=== PATIENT | male | born 1950 | race Caucasian/White ===

== ENCOUNTER 2017-12-27 14:06 | Observation (INO) ==
--- NOTE | 2017-12-27 14:25 | Emergency Department Note ---
Disposition Male Urogenital HPI - General Chief complaint: ED Urogenital-Male Stated complaint: trouble with catheter Time Seen by Provider: 12/27/17 14:24 Nursing Notes Reviewed: Yes Vital Signs Reviewed: Yes - Related Data Allergies Allergy/AdvReac Type Severity Reaction Status Date / Time nitrofurantoin Allergy See Verified 12/27/17 14:14 [From Macrobid] Comments Penicillins Allergy Anaphylaxis Verified 12/27/17 14:14 Course Vital Signs Temperature 97.7 F 12/27/17 14:12 Pulse Rate 90 12/27/17 14:12 Respiratory Rate 18 12/27/17 14:12 Blood Pressure 143/79 12/27/17 14:12 O2 Sat by Pulse Oximetry 96 12/27/17 14:12 Temperature 97.7 F 12/27/17 14:12 Pulse Rate 90 12/27/17 14:12 Respiratory Rate 18 12/27/17 14:12 Blood Pressure 143/79 12/27/17 14:12 O2 Sat by Pulse Oximetry 96 12/27/17 14:12 Oxygen Delivery Oxygen Delivery Room Air
[2017-12-27] MEDS ORDERED: Furosemide 40 MG/4 ML VIAL IVP ONE (14:39)
--- NOTE | 2017-12-27 14:44 | Emergency Department Note ---
Disposition Clinical Impression: Machuca catheter in place prior to arrival Acute exacerbation of CHF (congestive heart failure) Qualifiers: Heart failure type: unspecified Qualified Code(s): I50.9 - Heart failure, unspecified UTI (urinary tract infection) Qualifiers: Urinary tract infection type: site unspecified Hematuria presence: with hematuria Qualified Code(s): N39.0 - Urinary tract infection, site not specified ; R31.9 - Hematuria, unspecified Disposition: Admitted As Inpatient Condition: Fair Referrals: Madeline Michaels MD [Primary Care Provider] - Forms: ED Satisfaction Letter Time of Disposition: 16:19 General Adult HPI - General Chief complaint: ED Urogenital-Male Stated complaint: trouble with catheter Time Seen by Provider: 12/27/17 14:24 Nursing Notes Reviewed: Yes Vital Signs Reviewed: Yes - History of Present Illness HPI Narrative: 67-year-old male presents from home for evaluation of multiple complaints: 1) patient is a history of CAD status post DC with no stent. History CHF. Currently on Lasix 80 mg daily divided twice a day. He has had progressive shortness of breath, orthopnea, progressive swelling for the past several days. He also has scrotal swelling. 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 Expresses frustration with his primary care physician and last saw his hot blast worker in August. 2) patient was seen at [facility] emergency department 2 days ago for urinary retention. He was given a indwelling Machuca with leg bag with follow-up to urology. His Machuca is draining and, in the last 24 hours, he is emptied quantity 8 of the leg bags. The urologist with whom he was recommended no longer works with [facility]. The patient and refused to see the only other urologists at [facility]. Currently, he has no urology follow-up. 3) right lower back pain. Onset several days ago. Described as intermittent dullness. PMH: Hypertension, hyperlipidemia, CAD with ACS with no stent, CHF, BPH. History of pulmonary fibrosis and COPD; 2 L nasal cannula continuously. ROS: Positive: As above Negative: Fever, chills, nausea, vomiting, chest pains, palpitations, diaphoresis, changes in bowel habits, abdominal pain Pain Scale: 10 - Related Data Home Medications Medication Instructions Recorded Confirmed Albuterol Sulfate [Proair Hfa] 2 puff IH QID PRN 12/27/17 12/27/17 Docusate Sodium [Dok] 100 mg PO HS 12/27/17 12/27/17 Dorzolamide HCl/Pf [Dorzolamide 2% 1 drop OP BID 12/27/17 12/27/17 Eye Drop] Dulaglutide [Trulicity] 1.5 mg SQ QWEEK 12/27/17 12/27/17 Esomeprazole Magnesium [Nexium] 40 mg PO DAILY 12/27/17 12/27/17 Fenofibrate Nanocrystallized 145 mg PO DAILY 12/27/17 12/27/17 [Fenofibrate] Finasteride [Proscar] 5 mg PO DAILY 12/27/17 12/27/17 Furosemide [Lasix] 40 mg PO BID 12/27/17 12/27/17 Gabapentin [Neurontin] 300 mg PO 0800,1200 12/27/17 12/27/17 Gabapentin [Neurontin] 600 mg PO HS 12/27/17 12/27/17 Insulin DETEMIR [Levemir Flextouch] 40 unit SQ QAM 12/27/17 12/27/17 Insulin DETEMIR [Levemir Flextouch] 80 unit SQ QPM 12/27/17 12/27/17 Losartan [Cozaar] 25 mg PO DAILY 12/27/17 12/27/17 Phenazopyridine [Pyridium] 200 mg PO TID 12/27/17 12/27/17 Polyethylene Glycol 3350 [MiraLAX 1 scoop PO DAILY 12/27/17 12/27/17 Powder Bulk 17.9 Oz] Potassium Chloride [Klor-Con 10] 10 meq PO DAILY 12/27/17 12/27/17 Rosuvastatin Calcium [Crestor] 10 mg PO QPM 12/27/17 12/27/17 Sertraline [Zoloft] 100 mg PO DAILY 12/27/17 12/27/17 Tamsulosin HCl [Flomax] 0.4 mg PO DAILY 12/27/17 12/27/17 Tizanidine HCl 2 - 4 mg PO TID PRN 12/27/17 12/27/17 Travoprost [Travatan Z] 1 drop OP HS 12/27/17 12/27/17 metFORMIN [Glucophage] 850 mg PO BID 12/27/17 12/27/17 rOPINIRole [Requip] 1 mg PO HS 12/27/17 12/27/17 Allergies Allergy/AdvReac Type Severity Reaction Status Date / Time nitrofurantoin Allergy See Verified 12/27/17 14:14 [From Macrobid] Comments Penicillins Allergy Anaphylaxis Verified 12/27/17 14:14 All systems ED: reviewed and negative except as stated. Review of Systems: As Per HPI Physical Exam Vital Signs Reviewed General: Patient is alert, oriented, and in no acute distress. Head: atraumatic, normocephalic Eye: normal appearance, PERRL, EOMI, no scleral icterus, no conjunctival injection ENT: mucous membranes moist, normal external ear exam Neck: normal inspection, trachea midline, full ROM Chest: normal inspection, symmetric chest rise Respiratory: Poor respiratory effort. Bilateral breath sounds are diminished with no crackles or wheezes. Cardiovascular: Regular rate and rhythm. No clicks, rubs, gallops, or murmors. Normal heart sounds. 2+ pitting edema from the patient's ankles through to his lower abdomen including scrotal edema. Abdomen: Bowel sounds present normoactive x-4 quadrants. Abdomen is soft, nondistended, and nontender. No guarding or rebound. No organomegaly noted. Musculoskeletal: Spontaneously moving all extremities. Skin: warm, dry, intact. Neuro: Alert and oriented x4. Sensation light touch intact. Psych: Patient's affect is appropriate for situation. Course Course Narrative: Clinical concern is for acute exacerbation of congestive heart failure given the patient's profound pitting edema. Concerned that he may have a UTI from the Machuca catheter causing his back pain. We will replace the Machuca, dropping urinalysis, assess for exacerbation of CHF. We will begin with 40 mg IV Lasix at this time. Patient currently saturating well with no notable increased work of breathing on his baseline 2 L oxygen. Chest x-ray shows coarse markings throughout concerning for edema versus fibrosis. Low suspicion for infections process at this time. Patient does have a history of palmar fibrosis however, he also has clinical evidence of volume overload. Serum hematology shows hemoglobin of 10; no prior values for comparison. Serum chemistry shows elevated BNP consistent with congestive heart failure. Creatinine is elevated to 1.7; no prior values for comparison to know if this is acute kidney injury, consistent with his chronic kidney disease, or acute on chronic kidney injury. Urinalysis is concerning for urinary tract infection. Will provide Rocephin. No cardiac history on record. I discussed the above with the patient and his at bedside. I offered them transfer [facility] where the bulk of his medical care has been performed. They prefer admission to this facility. I discussed the above with the admitting hospitalist. He agrees to accept the patient for acute exacerbation of congestive heart failure as well as urinary tract infection. We discussed the need for eventual urology consult given his arrival with a Machuca catheter for reported urinary retention. Chest X-Ray 12/27/17 14:39 IMPRESSION: Decreased right lung volume. Coarse interstitial markings throughout the right lung and to a lesser degree in the left lung base. While findings may be related to edema or infection, concern for fibrosis given decreased lung volume on the right. D/ / Perla Hansen MD / Perla Hansen MD Interpreting Provider: Perla Hansen MD Vital Signs Temperature 97.7 F 12/27/17 14:12 Pulse Rate 90 12/27/17 14:12 Respiratory Rate 18 12/27/17 14:12 Blood Pressure 143/79 12/27/17 14:12 O2 Sat by Pulse Oximetry 96 12/27/17 14:12 Temperature 97.7 F 12/27/17 14:12 Pulse Rate 90 12/27/17 14:12 Respiratory Rate 18 12/27/17 14:12 Blood Pressure 143/79 12/27/17 14:12 O2 Sat by Pulse Oximetry 96 12/27/17 14:12 Oxygen Delivery Oxygen Delivery Room Air Medical Decision Making - Lab Data Result diagrams: 12/27/17 15:07 12/27/17 15:07 Lab Results 12/27/17 12/27/17 12/27/17 Range/Units 15:07 15:07 15:07 WBC 9.1 (4.3-11.1) K/mcL RBC 3.95 L (4.19-5.50) M/mcL Hgb 10.7 L (12.9-16.9) g/dL Hct 35.6 L (37.5-50.1) % MCV 90.1 (83.0-100.0) fL MCH 27.1 L (28.0-33.3) pg MCHC 30.1 L (31.6-35.5) g/dL RDW 14.4 (11.5-14.5) % Plt Count 188 (140-400) K/mcL MPV 10.9 (9.4-12.4) fL Immature Gran % 0.4 (0-4) % Seg Neutrophils % 73.3 % Lymphocytes % 14.4 % Monocytes % 8.6 % Eosinophils % 2.7 % Basophils % 0.6 % Neutrophils # 6.6 (1.6-8.9) K/mcL Lymphocytes # 1.3 (0.6-4.6) K/mcL Monocytes # 0.8 (0.0-1.3) K/mcL Eosinophils # 0.2 (0.0-0.6) K/mcL Basophils # 0.1 (0.0-0.2) K/mcL Sodium 140 (136-145) mEq/L Potassium 4.2 (3.5-5.1) mEq/L Chloride 97 L (98-107) mEq/L Carbon Dioxide 38 H (23-29) mEq/L BUN 32 H (8-23) mg/dL Creatinine 1.70 H (0.70-1.30) mg/dL Est GFR ( Amer) 49 L (> 60) Est GFR (Non-Af Amer) 40 L (> 60) BUN/Creatinine Ratio 19 (6-26) Glucose 118 H (70-105) mg/dL Calculated Osmolality 298 (280-300) Lactic Acid 1.1 (0.5-2.2) mmol/L Calcium 9.1 (8.6-10.3) mg/dL Total Bilirubin (0.3-1.0) mg/dL Direct Bilirubin (0.0-0.2) mg/dL Indirect Bilirubin (0.0-1.2) mg/dL AST (13-39) Units/L ALT (7-52) Units/L Alkaline Phosphatase (34-104) Units/L Troponin I 0.03 (< 0.04) ng/mL B-Natriuretic Peptide (Less than 100) pg/mL Serum Total Protein (6.4-8.9) g/dL Albumin (3.5-5.7) g/dL Globulin (2.4-3.5) g/dL Albumin/Globulin Ratio (1.1-2.2) Urine Color (Yellow) Urine Clarity (Clear) Urine pH (5.0-8.0) pH Units Ur Specific Sed[place] (1.010-1.025) Urine Protein (Neg-Trace) mg/dL Urine Glucose (UA) (Normal) mg/dL Urine Ketones (Negative) mg/dL Urine Blood (Negative) Urine Nitrite (Negative) Urine Bilirubin (Negative) Urine Urobilinogen (Normal) mg/dL Ur Leukocyte Esterase (Negative) Urine Microscopic RBC (0-3) per hpf Urine Microscopic WBC (0-3) per hpf Ur Squamous Epith Cells (None-Few) per lpf Urine Bacteria (None-Few) per hpf Hyaline Casts (None-Few) per lpf Ur Culture Indicated? (NO) 12/27/17 12/27/17 12/27/17 Range/Units 15:07 15:23 15:45 WBC (4.3-11.1) K/mcL RBC (4.19-5.50) M/mcL Hgb (12.9-16.9) g/dL Hct (37.5-50.1) % MCV (83.0-100.0) fL MCH (28.0-33.3) pg MCHC (31.6-35.5) g/dL RDW (11.5-14.5) % Plt Count (140-400) K/mcL MPV (9.4-12.4) fL Immature Gran % (0-4) % Seg Neutrophils % % Lymphocytes % % Monocytes % % Eosinophils % % Basophils % % Neutrophils # (1.6-8.9) K/mcL Lymphocytes # (0.6-4.6) K/mcL Monocytes # (0.0-1.3) K/mcL Eosinophils # (0.0-0.6) K/mcL Basophils # (0.0-0.2) K/mcL Sodium (136-145) mEq/L Potassium (3.5-5.1) mEq/L Chloride (98-107) mEq/L Carbon Dioxide (23-29) mEq/L BUN (8-23) mg/dL Creatinine (0.70-1.30) mg/dL Est GFR ( Amer) (> 60) Est GFR (Non-Af Amer) (> 60) BUN/Creatinine Ratio (6-26) Glucose (70-105) mg/dL Calculated Osmolality (280-300) Lactic Acid (0.5-2.2) mmol/L Calcium (8.6-10.3) mg/dL Total Bilirubin 0.5 (0.3-1.0) mg/dL Direct Bilirubin 0.2 (0.0-0.2) mg/dL Indirect Bilirubin 0.3 (0.0-1.2) mg/dL AST 23 (13-39) Units/L ALT 24 (7-52) Units/L Alkaline Phosphatase 70 (34-104) Units/L Troponin I (< 0.04) ng/mL B-Natriuretic Peptide 733 H (Less than 100) pg/mL Serum Total Protein 6.8 (6.4-8.9) g/dL Albumin 4.1 (3.5-5.7) g/dL Globulin 2.7 (2.4-3.5) g/dL Albumin/Globulin Ratio 1.5 (1.1-2.2) Urine Color Todd A (Yellow) Urine Clarity Clear (Clear) Urine pH 6.5 (5.0-8.0) pH Units Ur Specific [place] 1.010 (1.010-1.025) Urine Protein Negative (Neg-Trace) mg/dL Urine Glucose (UA) Normal (Normal) mg/dL Urine Ketones Negative (Negative) mg/dL Urine Blood Small H (Negative) Urine Nitrite Positive A (Negative) Urine Bilirubin Negative (Negative) Urine Urobilinogen Normal (Normal) mg/dL Ur Leukocyte Esterase Moderate H (Negative) Urine Microscopic RBC 5-15 H (0-3) per hpf Urine Microscopic WBC 5-15 H (0-3) per hpf Ur Squamous Epith Cells Many H (None-Few) per lpf Urine Bacteria None Seen (None-Few) per hpf Hyaline Casts None Seen (None-Few) per lpf Ur Culture Indicated? NO. A (NO) Attestation Statement - Attestation Attestation: I examined this patient and my medical decision-making was reviewed with the Resident Physician. I agree with the documented findings, disposition and treatment plan as described except to the extent set forth below. Urinary retention, urinary tract infection. We will proceed with admission for CHF exacerbation the setting of urinary tract infection.
[2017-12-27 15:21] LABS: Basophils # 0.1 K/mcL (0.0-0.2); Basophils % 0.6 %; Eosinophils # 0.2 K/mcL (0.0-0.6); Eosinophils % 2.7 %; Hematocrit 35.6 % (37.5-50.1); Hemoglobin 10.7 g/dL (12.9-16.9); Immature Granulocytes % 0.4 % (0-4); Lymphocytes # 1.3 K/mcL (0.6-4.6); Lymphocytes % 14.4 %; Mean Corpuscular HGB Conc 30.1 g/dL (31.6-35.5); Mean Corpuscular Hemoglobin 27.1 pg (28.0-33.3); Mean Corpuscular Volume 90.1 fL (83.0-100.0); Mean Platelet Volume 10.9 fL (9.4-12.4); Monocytes # 0.8 K/mcL (0.0-1.3); Monocytes % 8.6 %; Neutrophils # 6.6 K/mcL (1.6-8.9); Platelet Count 188 K/mcL (140-400); Red Blood Count 3.95 M/mcL (4.19-5.50); Red Cell Distribution Width 14.4 % (11.5-14.5); Segmented Neutrophils % 73.3 %
[2017-12-27 15:29] LABS: Bilirubin,Urine Negative (Negative); Blood,Urine Small (Negative); Clarity,Urine Clear (Clear); Color,Urine Orange (Yellow); Glucose,Urine (UA) Normal (Normal); Ketones,Urine Negative (Negative); Leukocyte Esterase,Urine Moderate (Negative); Nitrite,Urine Positive (Negative); PH,Urine 6.5 pH Units (5.0-8.0); Protein,Urine Negative (Neg-Trace); Urobilinogen,Urine Normal (Normal)
[2017-12-27 15:31] LABS: Bacteria,Urine None Seen per hpf (None-Few); Hyaline Casts,Urine None Seen per lpf (None-Few); Squamous Epithelial Cell,Urine Many per lpf (None-Few)
[2017-12-27 15:38] LABS: Troponin I 0.03 ng/mL (< 0.04)
[2017-12-27 15:42] LABS: Calcium 9.1 mg/dL (8.6-10.3); Potassium 4.2 mEq/L (3.5-5.1)
[2017-12-27] MEDS ORDERED: cefTRIAXone 2,000 MG in 0.9 % Sodium Chloride Mini Bag 100 ML IVPB ONE (16:08)
[2017-12-27 16:13] LABS: Albumin 4.1 g/dL (3.5-5.7); Albumin/Globulin Ratio 1.5 (1.1-2.2); Bilirubin,Direct 0.2 mg/dL (0.0-0.2); Bilirubin,Indirect 0.3 mg/dL (0.0-1.2); Bilirubin,Total 0.5 mg/dL (0.3-1.0); Globulin 2.7 g/dL (2.4-3.5); Total Protein 6.8 g/dL (6.4-8.9)
--- NOTE | 2017-12-27 17:27 | Internal Med History&Physical ---
Date of Encounter: 12/27/17 Time of Encounter: 17:00 Internal Medicine - H&P: HPI Chief complaint: Lower extremity swelling Admitted From: Home History of present illness: Patient is a 67-year-old male with past medical history significant for new onset of CHF on 08/2017, new onset of urinary retention, pulmonary fibrosis O2 dependent (4 L), CKD stage III, insulin dependent diabetes, hypertension and hyperlipidemia who presents to the ER on 12/27/17 due to worsening of lower extremity edema and shortness of breath. Patient is a poor historian but states that he has had lower extremity edema for over a year but has gotten worse in the last several days in addition to difficulty with shortness of breath. Patient states that a physician has been adjusting his home Lasix dose. In addition patient with recent urinary retention and Machuca catheter was placed. Patient was to follow-up with his urologist as an outpatient. Patient stated that he had no improvement in symptoms so came to the ER for evaluation. In the ER, patient was found to have a BNP of 733 with overloaded on exam. Patient was given 1 dose of IV Lasix 40 mg in addition to being started on IV ceftriaxone for concerns of UTI. Patient will be admitted to medical surgical floor for management of CHF and urinary retention. Internal Medicine - H&P: Meds Albuterol Sulfate [Proair Hfa] 2 puff IH QID PRN 12/27/17 [History] Docusate Sodium [Dok] 100 mg PO HS 12/27/17 [History] Dorzolamide HCl/Pf [Dorzolamide 2% Eye Drop] 1 drop OP BID 12/27/17 [History] Dulaglutide [Trulicity] 1.5 mg SQ QWEEK 12/27/17 [History] Esomeprazole Magnesium [Nexium] 40 mg PO DAILY 12/27/17 [History] Fenofibrate Nanocrystallized [Fenofibrate] 145 mg PO DAILY 12/27/17 [History] Finasteride [Proscar] 5 mg PO DAILY 12/27/17 [History] Furosemide [Lasix] 40 mg PO BID 12/27/17 [History] Gabapentin [Neurontin] 300 mg PO 0800,1200 12/27/17 [History] Gabapentin [Neurontin] 600 mg PO HS 12/27/17 [History] Insulin DETEMIR [Levemir Flextouch] 40 unit SQ QAM 12/27/17 [History] Insulin DETEMIR [Levemir Flextouch] 80 unit SQ QPM 12/27/17 [History] Losartan [Cozaar] 25 mg PO DAILY 12/27/17 [History] Phenazopyridine [Pyridium] 200 mg PO TID 12/27/17 [History] Polyethylene Glycol 3350 [MiraLAX Powder Bulk 17.9 Oz] 1 scoop PO DAILY [History] Potassium Chloride [Klor-Con 10] 10 meq PO DAILY 12/27/17 [History] Rosuvastatin Calcium [Crestor] 10 mg PO QPM 12/27/17 [History] Sertraline [Zoloft] 100 mg PO DAILY 12/27/17 [History] Tamsulosin HCl [Flomax] 0.4 mg PO DAILY 12/27/17 [History] Tizanidine HCl 2 - 4 mg PO TID PRN 12/27/17 [History] Travoprost [Travatan Z] 1 drop OP HS 12/27/17 [History] metFORMIN [Glucophage] 850 mg PO BID 12/27/17 [History] rOPINIRole [Requip] 1 mg PO HS 12/27/17 [History] 3 Allergy/AdvReac Type Severity Reaction Status Date / Time nitrofurantoin Allergy See Verified 12/27/17 14:14 [From Macrobid] Comments Penicillins Allergy Anaphylaxis Verified 12/27/17 14:14 All Systems PM: A 10-system review of systems was performed and is negative for pertinent findings except as documented above in the HPI. - Constitutional Vitals: Temp Pulse Resp BP Pulse Ox 97.7 F 90 18 143/79 96 12/27/17 14:12 12/27/17 14:12 12/27/17 14:12 12/27/17 14:12 12/27/17 14:12 General appearance: Present: A&O X 3, no acute distress Exam: As above - Eye Eye exam: Present: normal appearance - Respiratory Respiratory exam: Present: CTAB. Absent: accessory muscle use, rales, rhonchi, wheezes - Cardiovascular Cardiovascular exam: Present: RRR, +S1, +S2. Absent: diastolic murmur, gallop, rubs, systolic murmur - GI/Abdominal GI/Abdominal exam: Present: normal bowel sounds, soft, no peritoneal signs. Absent: distended, tenderness - Expanded Lower Extremities Exam Upper Leg exam: Present: swelling (Bilateral +2 pitting edema up to distal knee) - Neurological Exam Neurological exam: Present: oriented X3 - Psychiatric Psychiatric exam: Present: normal mood - Skin Skin exam: Present: normal color Internal Med - H&P Results - Labs CBC & Chem 7: 12/27/17 15:07 12/27/17 15:07 - Assessment and plan (1) Acute exacerbation of CHF (congestive heart failure) Current Visit: Yes Status: Acute Assessment and plan: Patient reports a new diagnosis of CHF on 08/2017 Patient found to be volume overloaded on exam in addition to elevated BNP Will continue IV diuresis and order echocardiogram Consult cardiology and appreciate recommendations Qualifiers: Heart failure type: unspecified Qualified Code(s): I50.9 - Heart failure, unspecified (2) Urinary retention Current Visit: Yes Status: Acute Assessment and plan: Patient reports a new diagnosis of urinary retention and was supposed to follow- up with urology as an outpatient however his urologist as mood. Machuca catheter was replaced in the ER due to suspected infection Will consult urology and appreciate recommendations. (3) UTI (urinary tract infection) Current Visit: Yes Status: Acute Assessment and plan: Patient with pyuria on urinalysis and reported pus around catheter site per ER staff. Machuca catheter replaced as above Will continue IV antibiotics initiated in the ER. Qualifiers: Urinary tract infection type: site unspecified Hematuria presence: with hematuria Qualified Code(s): N39.0 - Urinary tract infection, site not specified; R31.9 - Hematuria, unspecified (4) Chronic respiratory failure with hypoxia Current Visit: Yes Status: Acute Assessment and plan: Patient reports a history of questionable fibrosis/interstitial lung disease Patient on baseline O2 requirements (4 L) (5) CKD (chronic kidney disease) stage 3, GFR 30-59 ml/min Current Visit: Yes Status: Acute Assessment and plan: Patient reports of seeing a websphere developer for CKD stage III No reference for baseline creatinine. On admission creatinine was 1.70 Will continue to monitor (6) Diabetes Current Visit: Yes Status: Acute Assessment and plan: Will continue patient's home medications Qualifiers: Qualified Code(s): E11.9 - Type 2 diabetes mellitus without complications (7) HTN (hypertension) Current Visit: Yes Status: Acute Assessment and plan: Continue home medications Qualifiers: Hypertension type: essential hypertension Qualified Code(s): I10 - Essential (primary) hypertension (8) HLD (hyperlipidemia) Current Visit: Yes Status: Acute Assessment and plan: Continue home medications Qualifiers: Hyperlipidemia type: unspecified Qualified Code(s): E78.5 - Hyperlipidemia , unspecified (9) Anemia Current Visit: Yes Status: Acute Assessment and plan: Patient with a hemoglobin of 10.9 on admission no reference for baseline Suspect secondary to chronic kidney disease stage III Continue to monitor Qualifiers: Qualified Code(s): D64.9 - Anemia, unspecified (10) DVT prophylaxis Current Visit: Yes Status: Acute Assessment and plan: Heparin subcutaneous - Time Spent With Patient Total time spent is greater than 50% in coordination of care (as documented) at patient's floor/unit and/or counseling patient:
[2017-12-27] MEDS ORDERED: Naloxone 0.4 MG/ML INJ IVP PRN (17:42)
[2017-12-27] MEDS ORDERED: Dulaglutide [Trulicity] 1.5 MG SQ SCH (17:45)
[2017-12-27] MEDS ORDERED: Insulin DETEMIR 100 UNIT/ML X5UNITS SQ SCH (18:00)
[2017-12-27] MEDS ORDERED: *HR* Dextrose 50 % in Water (Syg) 50 ML SYRINGE IVP PRN (18:08)
[2017-12-27] MEDS ORDERED: D5% in Water 1,000 ML IVC PRN (18:08)
[2017-12-27] MEDS ORDERED: Dextrose Gel 15 GM/37.5 ML TUBE PO PRN ×2 (18:08)
[2017-12-27] MEDS: cefTRIAXone 2,000 MG in Water for inj. (sterile) 20 ML 20 ML IVP SCH (20:28)
[2017-12-27] MEDS: Furosemide 40 MG/4 ML VIAL IVP SCH (20:31)
[2017-12-27] MEDS: *HR* Heparin 5,000 UNIT/ML VIAL SQ SCH (20:31)
[2017-12-27] MEDS: Gabapentin 300 MG CAPSULE PO SCH (20:32)
[2017-12-27] MEDS: rOPINIRole 1 MG TABLET PO SCH (20:32)
[2017-12-27] MEDS: Latanoprost 2.5 ML BOTTLE BOTH EYES SCH (20:33)
[2017-12-27] MEDS ORDERED: Dorzolamide OPTH 10 ML BOTTLE BOTH EYES SCH (21:00)
[2017-12-28 03:41] LABS: Basophils # 0.1 K/mcL (0.0-0.2); Basophils % 0.9 %; Eosinophils # 0.3 K/mcL (0.0-0.6); Eosinophils % 3.3 %; Hematocrit 36.2 % (37.5-50.1); Hemoglobin 10.8 g/dL (12.9-16.9); Immature Granulocytes % 0.2 % (0-4); Lymphocytes # 1.5 K/mcL (0.6-4.6); Lymphocytes % 18.7 %; Mean Corpuscular HGB Conc 29.8 g/dL (31.6-35.5); Mean Corpuscular Hemoglobin 26.9 pg (28.0-33.3); Mean Platelet Volume 11.1 fL (9.4-12.4); Monocytes # 0.7 K/mcL (0.0-1.3); Monocytes % 8.4 %; Neutrophils # 5.6 K/mcL (1.6-8.9); Platelet Count 196 K/mcL (140-400); Red Blood Count 4.02 M/mcL (4.19-5.50); Red Cell Distribution Width 14.7 % (11.5-14.5); Segmented Neutrophils % 68.5 %
[2017-12-28 04:04] LABS: Calcium 9.4 mg/dL (8.6-10.3); Potassium 4.3 mEq/L (3.5-5.1)
[2017-12-28] MEDS ORDERED: Acetaminophen 325 MG TABLET PO ONE (04:37)
[2017-12-28] MEDS: *HR* Heparin 5,000 UNIT/ML VIAL SQ SCH ×2 (05:50→18:30)
--- NOTE | 2017-12-28 08:02 | Urology - Consult Note ---
Date of Encounter: 12/28/17 Time of Encounter: 07:57 - Assessment and Plan (1) Urinary retention Current Visit: Yes Status: Acute Assessment and plan: I suspect the urinary retention is secondary to a combination of BPH with outlet obstruction and debilitated condition requiring increased diuresis. The increased diuresis often "overwhelms" the bladder's ability to urinate. Currently, I do not feel we can remove the catheter as he will likely develop recurrent retention. continue tamsulosin and finasteride. Will likely continue cath at discharge with evaluation in office as outpatient. Depending on his condition may consider voiding trial or remove cath and teach pt how to intermittent catherize himself for retention. He might not be great surgical candidate for recurrent TURP. all the above was discussed with the patient. Urology CN:PABLO Consult date: 12/28/17 Reason for consult Urology: Other History of present illness: new pt the [facility]. Fairly significant Urology hx. TURP 10 years ago for BPH. Has been having increased difficulty with urination in last few years. On finasteride and tamsulosin. Developed urinary retention last week at [facility]. Pt unsure amount of residual urine at time of cath placement. Pt is requiring increased diuretics. pt refuses to see Dr Aranda at [facility] bc he believes the macrobid prescribed 5-6 years ago caused pulmonary fibrosis. Past Med Surg Social Fam HX - Past Medical History Medical history: CHF, COPD, coronary artery disease, diabetes, hyperlipidemia, hypertension, myocardial infarction Additional medical history: BPH, pulmonary fibrosis Psychiatric history: no psych history - Past Surgical History Surgical History: knee replacement - Social History Smoking Status: Current every day smoker Smokeless Tobacco Status: No Alcohol use: occasionally Drug use: none Medications and Allergies Albuterol Sulfate [Proair Hfa] 2 puff IH QID PRN 12/27/17 [History] Docusate Sodium [Dok] 100 mg PO HS 12/27/17 [History] Dorzolamide HCl/Pf [Dorzolamide 2% Eye Drop] 1 drop OP BID 12/27/17 [History] Dulaglutide [Trulicity] 1.5 mg SQ QWEEK 12/27/17 [History] Esomeprazole Magnesium [Nexium] 40 mg PO DAILY 12/27/17 [History] Fenofibrate Nanocrystallized [Fenofibrate] 145 mg PO DAILY 12/27/17 [History] Finasteride [Proscar] 5 mg PO DAILY 12/27/17 [History] Furosemide [Lasix] 40 mg PO BID 12/27/17 [History] Gabapentin [Neurontin] 300 mg PO 0800,1200 12/27/17 [History] Gabapentin [Neurontin] 600 mg PO HS 12/27/17 [History] Insulin DETEMIR [Levemir Flextouch] 40 unit SQ QAM 12/27/17 [History] Insulin DETEMIR [Levemir Flextouch] 80 unit SQ QPM 12/27/17 [History] Losartan [Cozaar] 25 mg PO DAILY 12/27/17 [History] Phenazopyridine [Pyridium] 200 mg PO TID 12/27/17 [History] Polyethylene Glycol 3350 [MiraLAX Powder Bulk 17.9 Oz] 1 scoop PO DAILY [History] Potassium Chloride [Klor-Con 10] 10 meq PO DAILY 12/27/17 [History] Rosuvastatin Calcium [Crestor] 10 mg PO QPM 12/27/17 [History] Sertraline [Zoloft] 100 mg PO DAILY 12/27/17 [History] Tamsulosin HCl [Flomax] 0.4 mg PO DAILY 12/27/17 [History] Tizanidine HCl 2 - 4 mg PO TID PRN 12/27/17 [History] Travoprost [Travatan Z] 1 drop OP HS 12/27/17 [History] metFORMIN [Glucophage] 850 mg PO BID 12/27/17 [History] rOPINIRole [Requip] 1 mg PO HS 12/27/17 [History] 3 Allergy/AdvReac Type Severity Reaction Status Date / Time nitrofurantoin Allergy See Verified 12/27/17 14:14 [From Macrobid] Comments Penicillins Allergy Anaphylaxis Verified 12/27/17 14:14 Review of Systems - Constitutional fatigue, no fever(s) - EENT Nose, mouth and throat: dry mouth, no dizziness - Cardiovascular dyspnea, edema, no chest pain - Respiratory cough - Gastrointestinal no abdominal pain - Genitourinary difficulty urinating - Musculoskeletal back pain - Integumentary no erythema - Neurological no confusion - Psychiatric no anxiety - Hematologic/Lymphatic no easy bleeding - Allergic/Immunologic no throat swelling Exam Initial Vital Signs Temp Pulse Resp BP Pulse Ox 97.7 F 90 18 143/79 96 12/27/17 14:12 12/27/17 14:12 12/27/17 14:12 12/27/17 14:12 12/27/17 14:12 - General physical appearance Present: no distress, chronically ill - Eyes Present: PERRL, conjunctiva is clear - ENT Present: normal nares - Neck Present: no masses, no lymphadenopathy - Respiratory Present: other (SOB with conversation. ) - Cardiovascular Cardiovascular exam IM: RRR - Abdomen Abdomen: Present: soft - Integumentary Present: no rash. Absent: disoriented - Neurologic Absent: disoriented, confused - Additional Findings urine clear. Urology Results - Labs 12/28/17 03:12 12/28/17 03:12 Abnormal lab results RBC 4.02 M/mcL (4.19-5.50) L 12/28/17 03:12 Hgb 10.8 g/dL (12.9-16.9) L 12/28/17 03:12 Hct 36.2 % (37.5-50.1) L 12/28/17 03:12 MCH 26.9 pg (28.0-33.3) L 12/28/17 03:12 MCHC 29.8 g/dL (31.6-35.5) L 12/28/17 03:12 RDW 14.7 % (11.5-14.5) H 12/28/17 03:12 Chloride 96 mEq/L (98-107) L 12/28/17 03:12 Carbon Dioxide 43 mEq/L (23-29) H* 12/28/17 03:12 BUN 32 mg/dL (8-23) H 12/28/17 03:12 Creatinine 1.61 mg/dL (0.70-1.30) H 12/28/17 03:12 Est GFR ( Amer) 52 (> 60) L 12/28/17 03:12 Est GFR (Non-Af Amer) 43 (> 60) L 12/28/17 03:12 POC Glucose 133 mg/dL (70-99) H 12/27/17 21:04 B-Natriuretic Peptide 733 pg/mL (Less than 100) H 12/27/17 15:07 Urine Color [place] (Yellow) A 12/27/17 15:23 Urine Blood Small (Negative) H 12/27/17 15:23 Urine Nitrite Positive (Negative) A 12/27/17 15:23 Ur Leukocyte Esterase Moderate (Negative) H 12/27/17 15:23 Urine Microscopic RBC 5-15 per hpf (0-3) H 12/27/17 15:23 Urine Microscopic WBC 5-15 per hpf (0-3) H 12/27/17 15:23 Ur Squamous Epith Cells Many per lpf (None-Few) H 12/27/17 15:23 Ur Culture Indicated? NO. (NO) A 12/27/17 15:23 Diabetes panel 12/28/17 Range/Units 03:12 Sodium 142 (136-145) mEq/L Potassium 4.3 (3.5-5.1) mEq/L Chloride 96 L (98-107) mEq/L Carbon Dioxide 43 H* (23-29) mEq/L BUN 32 H (8-23) mg/dL Creatinine 1.61 H (0.70-1.30) mg/dL Glucose 73 (70-105) mg/dL Calcium 9.4 (8.6-10.3) mg/dL Calcium panel 12/28/17 Range/Units 03:12 Calcium 9.4 (8.6-10.3) mg/dL Pituitary panel 12/28/17 Range/Units 03:12 Sodium 142 (136-145) mEq/L Potassium 4.3 (3.5-5.1) mEq/L Chloride 96 L (98-107) mEq/L Carbon Dioxide 43 H* (23-29) mEq/L BUN 32 H (8-23) mg/dL Creatinine 1.61 H (0.70-1.30) mg/dL Glucose 73 (70-105) mg/dL Calcium 9.4 (8.6-10.3) mg/dL Adrenal panel 12/28/17 Range/Units 03:12 Sodium 142 (136-145) mEq/L Potassium 4.3 (3.5-5.1) mEq/L Chloride 96 L (98-107) mEq/L Carbon Dioxide 43 H* (23-29) mEq/L BUN 32 H (8-23) mg/dL Creatinine 1.61 H (0.70-1.30) mg/dL Glucose 73 (70-105) mg/dL Calcium 9.4 (8.6-10.3) mg/dL All other labs normal. Consult Discharge Plan - Plan Referrals: Madeline Michaels MD [Primary Care Provider] -
[2017-12-28] MEDS: Gabapentin 300 MG CAPSULE PO SCH ×3 (08:24→20:39)
[2017-12-28] MEDS: Furosemide 40 MG/4 ML VIAL IVP SCH ×2 (08:24→18:30)
[2017-12-28] MEDS: Fenofibrate 54 MG TABLET PO SCH (08:24)
[2017-12-28] MEDS: Finasteride 5 MG TABLET PO SCH (08:24)
[2017-12-28] MEDS: Dorzolamide OPTH 10 ML BOTTLE BOTH EYES SCH ×2 (08:26→12:02)
[2017-12-28] MEDS: Insulin LISPRO 300 UNITS/3 ML VIAL SQ SCH ×4 (08:36→20:25)
[2017-12-28] MEDS ORDERED: Insulin DETEMIR 100 UNIT/ML X5UNITS SQ SCH (09:00)
--- NOTE | 2017-12-28 10:16 | Internal Med Progress Note ---
Hospitalist Progress Note - Encounter Date of Encounter: 12/28/17 Time of Encounter: 11:00 - Subjective Interval History: Patient reports improvement in shortness of breath with IV diuresis for CHF - Exam Vitals: Temp Pulse Resp BP Pulse Ox 97.3 F L 78 18 135/81 95 12/28/17 07:11 12/28/17 07:11 12/28/17 07:11 12/28/17 07:11 12/28/17 08:00 Exam: Gen.: Nonacute distress, alert and oriented 3 ENT: Mucosal membranes moist Respiratory: Lungs are clear to auscultation bilaterally without any wheezing rhonchi or rales Cardiovascular: Normal S1 and S2 regular rate rhythm no murmurs rubs or gallops Abdomen: Soft, nontender and nondistended with positive bowel sounds Extremities: Bilateral lower extremity +1 pitting edema up to distal thigh Skin: Normal color - Assessment and Plan (1) Acute exacerbation of CHF (congestive heart failure) Current Visit: Yes Status: Acute Assessment and Plan: Patient reports a new diagnosis of CHF on 08/2017 Patient found to be volume overloaded on exam in addition to elevated BNP Will continue IV diuresis; echocardiogram pending Consult cardiology and appreciate recommendations (2) Urinary retention Current Visit: Yes Status: Acute Assessment and Plan: Patient reports a new diagnosis of urinary retention and was supposed to follow- up with urology as an outpatient however his urologist as mood. Machuca catheter was replaced in the ER due to suspected infection Urology consulted and appreciate recommendations. (3) UTI (urinary tract infection) Current Visit: Yes Status: Acute Assessment and Plan: Patient with pyuria on urinalysis and reported pus around catheter site per ER staff. Machuca catheter replaced as above Will continue IV antibiotics initiated in the ER. (4) Chronic respiratory failure with hypoxia Current Visit: Yes Status: Acute Assessment and Plan: Patient reports a history of questionable fibrosis/interstitial lung disease Patient on baseline O2 requirements (4 L) (5) CKD (chronic kidney disease) stage 3, GFR 30-59 ml/min Current Visit: Yes Status: Acute Assessment and Plan: Patient reports of seeing a vision specialist for CKD stage III No reference for baseline creatinine. On admission creatinine was 1.70 and this morning creatinine 1.61 Will continue to monitor (6) Diabetes Current Visit: Yes Status: Acute Assessment and Plan: Will continue patient's home medications (7) HTN (hypertension) Current Visit: Yes Status: Acute Assessment and Plan: Continue home medications (8) HLD (hyperlipidemia) Current Visit: Yes Status: Acute Assessment and Plan: Continue home medications (9) Anemia Current Visit: Yes Status: Acute Assessment and Plan: Patient with a hemoglobin of 10.9 on admission no reference for baseline Suspect secondary to chronic kidney disease stage III Continue to monitor (10) DVT prophylaxis Current Visit: Yes Status: Acute Assessment and Plan: Heparin subcutaneous - Time Spent with Patient Total time spent is greater than 50% in coordination of care (as documented) at patient's floor/unit and/or counseling patient: Internal Medicine: Result - Labs CBC & Chem 7: 12/28/17 03:12 12/28/17 03:12 Labs: Short CBC 12/28/17 Range/Units 03:12 WBC 8.2 (4.3-11.1) K/mcL Hgb 10.8 L (12.9-16.9) g/dL Hct 36.2 L (37.5-50.1) % Plt Count 196 (140-400) K/mcL Neutrophils # 5.6 (1.6-8.9) K/mcL BMP 12/28/17 03:12 Sodium 142 Potassium 4.3 Chloride 96 L Carbon Dioxide 43 H* BUN 32 H Creatinine 1.61 H Glucose 73 Calcium 9.4 Consult Discharge Plan - Plan Referrals: Madeline Michaels MD [Primary Care Provider] - (1) Acute exacerbation of CHF (congestive heart failure) Qualifiers: Heart failure type: unspecified Qualified Code(s): I50.9 - Heart failure, unspecified (3) UTI (urinary tract infection) Qualifiers: Urinary tract infection type: site unspecified Hematuria presence: with hematuria Qualified Code(s): N39.0 - Urinary tract infection, site not specified; R31.9 - Hematuria, unspecified (7) HTN (hypertension) Qualifiers: Hypertension type: essential hypertension Qualified Code(s): I10 - Essential (primary) hypertension (8) HLD (hyperlipidemia) Qualifiers: Hyperlipidemia type: unspecified Qualified Code(s): E78.5 - Hyperlipidemia, unspecified
--- NOTE | 2017-12-28 11:13 | Cardiology Consult Note ---
<Alton Jeter R - Last Filed: 12/28/17 11:19> Date of Encounter: 12/28/17 Time of Encounter: 11:11 Assessment and Plan (1) Acute exacerbation of CHF (congestive heart failure) Current Visit: Yes Status: Acute Per pt, diagnosed with CHF at [facility] 08/2017. He is unsure of EF. Request records. TTE ordered to evaluate systolic vs diastolic CHF. Presented with worsening dyspnea and LE edema over recent weeks. Reports excessive fluid intake--was unaware he should be restricting. BNP 733. Agree with IV diuresis, IV Lasix 40mg BID. Monitor renal function closely given CKD. Recommend strict I/Os, Na and fluid restriction, daily weights. Reports never having a LHC, had stress test ~5 years ago. If EF is reduced, will need to discuss ischemic evaluation. Continue to follow. Further recs once TTE results. Qualifiers: Heart failure type: unspecified Qualified Code(s): I50.9 - Heart failure, unspecified Discussion w patient/family: The assessment and plan as outlined above was discussed with the patient and/or family members who expressed understanding and agreement. All questions were answered. Thank you for involving us in the care of your patient. Please call with any questions. I will discuss all the above with Dr. Terry and make changes as necessary. History of Present Illness Consult date: 12/28/17 Consult reason: CHF Chief complaint: dyspnea, LE edema History of present illness: Mr. Crowder is a 67 year old male with PMH significant for reported CHF diagnosis at [facility] 08/2017 (systolic vs diastolic), new onset of urinary retention, pulmonary fibrosis O2 dependent (4 L), CKD stage III, insulin dependent diabetes, hypertension and hyperlipidemia who presents to the ER on due to worsening of lower extremity edema and shortness of breath. Pt reports worsening dyspnea, LE edema and orthopnea over recent weeks. He denies chest pain. In the ER, patient was found to have a BNP of 733 and fluid overloaded on exam. Patient was given 1 dose of IV Lasix 40 mg in addition to being started on IV ceftriaxone for concerns of UTI. Cardiology consulted for further recs. Past Med Surg Social Fam HX - Past Medical History Medical history: CHF, COPD, coronary artery disease, diabetes, hyperlipidemia, hypertension, myocardial infarction Additional medical history: BPH, pulmonary fibrosis Psychiatric history: no psych history - Past Surgical History Surgical History: knee replacement - Social History Smoking Status: Current every day smoker Smokeless Tobacco Status: No Alcohol use: occasionally Drug use: none Medications and Allergies Albuterol Sulfate [Proair Hfa] 2 puff IH QID PRN 12/27/17 [History] Docusate Sodium [Dok] 100 mg PO HS 12/27/17 [History] Dorzolamide HCl/Pf [Dorzolamide 2% Eye Drop] 1 drop OP BID 12/27/17 [History] Dulaglutide [Trulicity] 1.5 mg SQ QWEEK 12/27/17 [History] Esomeprazole Magnesium [Nexium] 40 mg PO DAILY 12/27/17 [History] Fenofibrate Nanocrystallized [Fenofibrate] 145 mg PO DAILY 12/27/17 [History] Finasteride [Proscar] 5 mg PO DAILY 12/27/17 [History] Furosemide [Lasix] 40 mg PO BID 12/27/17 [History] Gabapentin [Neurontin] 300 mg PO 0800,1200 12/27/17 [History] Gabapentin [Neurontin] 600 mg PO HS 12/27/17 [History] Insulin DETEMIR [Levemir Flextouch] 40 unit SQ QAM 12/27/17 [History] Insulin DETEMIR [Levemir Flextouch] 80 unit SQ QPM 12/27/17 [History] Losartan [Cozaar] 25 mg PO DAILY 12/27/17 [History] Phenazopyridine [Pyridium] 200 mg PO TID 12/27/17 [History] Polyethylene Glycol 3350 [MiraLAX Powder Bulk 17.9 Oz] 1 scoop PO DAILY [History] Potassium Chloride [Klor-Con 10] 10 meq PO DAILY 12/27/17 [History] Rosuvastatin Calcium [Crestor] 10 mg PO QPM 12/27/17 [History] Sertraline [Zoloft] 100 mg PO DAILY 12/27/17 [History] Tamsulosin HCl [Flomax] 0.4 mg PO DAILY 12/27/17 [History] Tizanidine HCl 2 - 4 mg PO TID PRN 12/27/17 [History] Travoprost [Travatan Z] 1 drop OP HS 12/27/17 [History] metFORMIN [Glucophage] 850 mg PO BID 12/27/17 [History] rOPINIRole [Requip] 1 mg PO HS 12/27/17 [History] 3 Allergy/AdvReac Type Severity Reaction Status Date / Time nitrofurantoin Allergy See Verified 12/27/17 14:14 [From Macrobid] Comments Penicillins Allergy Anaphylaxis Verified 12/27/17 14:14 All Systems Review: The remainder of the systems were reviewed and are negative - Cardiovascular Cardiovascular: as per HPI, dyspnea at rest, dyspnea on exertion, leg edema - Respiratory Respiratory: dyspnea Physical Examination Vital Signs, Last 4 Hours Resp Pulse Ox 12/28/17 10:39 16 96 12/28/17 08:00 95 Vital Signs Temp Pulse Resp BP Pulse Ox 12/28/17 11:12 97.5 F L 78 19 150/82 96 12/28/17 10:39 16 96 12/28/17 08:00 95 12/28/17 07:11 97.3 F L 78 18 135/81 95 12/28/17 04:55 16 96 12/28/17 04:14 97.3 F L 82 16 130/73 96 12/27/17 23:12 97.7 F 90 16 129/67 90 12/27/17 22:03 18 94 12/27/17 18:41 97.4 F L 89 24 149/84 93 12/27/17 18:24 84 18 97 12/27/17 18:21 97.7 F 90 18 143/79 96 12/27/17 14:12 97.7 F 90 18 143/79 96 Intake and Output 12/27/17 12/28/17 12/28/17 23:59 07:59 15:59 Intake Total 240 / 240 Output Total 2450 / 2450 300 / 300 Balance -2450 / -2450 -300 / -300 240 / 240 Intake: Oral 240 / 240 Output: Urine 1800 / 1800 300 / 300 Catheter 650 / 650 Urethral (Machuca) 650 / 650 Other: Meal Breakfast Percent of Meal Consumed 100% Weight 124.738 kg Blood Glucose* 133 47 117 General: Conversant, No Apparent Distress HEENT: Atraumatic, Normocephaly, Mucus Membranes Moist Neck: Normal carotid pulses Cardiac: Reg Rate and Rhythm, Normal S1 and S2, No Murmur Lungs: Other (diminished, crackles) Neuro: Alert and responsive, No focal deficits noted Abdomen: Soft, Non-Tender Skin: No rashes noted on visualized skin Musculoskeletal: No Chest Wall Tenderness Extremities: Other (1+ BLE edema) Results 12/28/17 03:12 12/28/17 03:12 Lab Results 12/28/17 12/28/17 03:12 03:12 WBC 8.2 Hgb 10.8 L Hct 36.2 L Plt Count 196 Sodium 142 Potassium 4.3 Chloride 96 L Carbon Dioxide 43 H* BUN 32 H Creatinine 1.61 H Glucose 73 Calcium 9.4 Short CBC 12/28/17 12/27/17 Range/Units 03:12 15:07 WBC 8.2 9.1 (4.3-11.1) K/mcL Hgb 10.8 L 10.7 L (12.9-16.9) g/dL Hct 36.2 L 35.6 L (37.5-50.1) % Plt Count 196 188 (140-400) K/mcL Neutrophils # 5.6 6.6 (1.6-8.9) K/mcL BMP 12/28/17 12/27/17 Range/Units 03:12 15:07 Sodium 142 140 (136-145) mEq/L Potassium 4.3 4.2 (3.5-5.1) mEq/L Chloride 96 L 97 L (98-107) mEq/L Carbon Dioxide 43 H* 38 H (23-29) mEq/L BUN 32 H 32 H (8-23) mg/dL Creatinine 1.61 H 1.70 H (0.70-1.30) mg/dL Glucose 73 118 H (70-105) mg/dL Calcium 9.4 9.1 (8.6-10.3) mg/dL Cardiac Enzymes 12/27/17 Range/Units 15:07 Troponin I 0.03 (< 0.04) ng/mL Liver Function 12/27/17 Range/Units 15:45 Total Bilirubin 0.5 (0.3-1.0) mg/dL Direct Bilirubin 0.2 (0.0-0.2) mg/dL AST 23 (13-39) Units/L ALT 24 (7-52) Units/L Alkaline Phosphatase 70 (34-104) Units/L Albumin 4.1 (3.5-5.7) g/dL Urine 12/27/17 Range/Units 15:23 Urine Color [place] A (Yellow) Urine Clarity Clear (Clear) Urine pH 6.5 (5.0-8.0) pH Units Ur Specific [place] 1.010 (1.010-1.025) Urine Protein Negative (Neg-Trace) mg/dL Urine Glucose (UA) Normal (Normal) mg/dL Impressions Chest X-Ray 12/27/17 14:39 IMPRESSION: Decreased right lung volume. Coarse interstitial markings throughout the right lung and to a lesser degree in the left lung base. While findings may be related to edema or infection, concern for fibrosis given decreased lung volume on the right. D/ / Perla Hansen MD / Perla Hansen MD Interpreting Provider: Perla Hansen MD Active Medications Albuterol Sulfate (Albuterol Inhaler) 2 puff IH QIDR [facility] Stop: 06/28/18 23:01 Last Admin: 12/28/17 10:39 Dose: 2 puff Dextrose/Water (Dextrose 50% (Syg)) 25 ml IVP AD PRN PRN Reason: Hypoglycemia Stop: 06/28/18 18:09 Docusate Sodium (Colace) 100 mg PO HS [facility] PRN Reason: Protocol Stop: 06/28/18 21:01 Last Admin: 12/27/17 20:32 Dose: 100 mg Dorzolamide HCl (Trusopt) 1 drop BOTH EYES 0900,1200 [facility] Stop: 06/28/18 21:01 Last Admin: 12/28/17 08:26 Dose: 1 drop Fenofibrate (Tricor) 162 mg PO DAILY [facility] Stop: 06/29/18 09:01 Last Admin: 12/28/17 08:24 Dose: 162 mg Finasteride (Proscar) 5 mg PO DAILY [facility] PRN Reason: Protocol Stop: 06/29/18 09:01 Last Admin: 12/28/17 08:24 Dose: 5 mg Furosemide (Lasix) 40 mg IVP BIDDIURETIC [facility] Stop: 06/28/18 18:01 Last Admin: 12/28/17 08:24 Dose: 40 mg Gabapentin (Neurontin) 300 mg PO 0800,1200 [facility] Stop: 06/29/18 08:01 Last Admin: 12/28/17 08:24 Dose: 300 mg Gabapentin (Neurontin) 600 mg PO HS [facility] Stop: 06/28/18 21:01 Last Admin: 12/27/17 20:32 Dose: 600 mg Glucagon (Glucagen) 1 mg IM ONCE PRN PRN Reason: Hypoglycemia Stop: 06/28/18 18:09 Glucose (Gluctose) 15 gm PO ONCE PRN PRN Reason: Hypoglycemia Stop: 06/28/18 18:09 Glucose (Gluctose) 30 gm PO ONCE PRN PRN Reason: Hypoglycemia Stop: 06/28/18 18:09 Heparin Sodium (Porcine) (Heparin) 5,000 unit SQ Q12HCO [facility] Stop: 06/28/18 18:01 Last Admin: 12/28/17 05:50 Dose: 5,000 unit Ceftriaxone Sodium 2,000 mg/ (Sterile Water) 20 mls @ 600 mls/hr IVP Q24H [facility] Stop: 06/28/18 18:01 Last Admin: 12/27/17 20:28 Dose: Not Given Dextrose (Dextrose 5%) 1,000 mls @ 100 mls/hr IVC .Q10H PRN PRN Reason: HYPOGLYCEMIA Stop: 06/28/18 18:09 Insulin Detemir (Levemir) 40 unit SQ QAM [facility] Stop: 06/29/18 09:01 Insulin Detemir (Levemir) 80 unit SQ QPM [facility] Stop: 06/28/18 18:01 Last Admin: 12/27/17 21:06 Dose: 80 unit Insulin Human Lispro (Humalog) 0 units SQ TIDAC [facility] PRN Reason: Protocol Stop: 06/29/18 07:31 Last Admin: 12/28/17 08:36 Dose: Not Given Insulin Human Lispro (Humalog) 0 units SQ HS [facility] PRN Reason: Protocol Stop: 06/29/18 21:01 Latanoprost (Xalatan) 1 drop BOTH EYES [facility] Stop: 06/28/18 21:01 Last Admin: 12/27/17 20:33 Dose: 1 drop Losartan Potassium (Cozaar) 25 mg PO DAILY [facility] PRN Reason: Protocol Stop: 06/29/18 09:01 Last Admin: 12/28/17 08:25 Dose: 25 mg Naloxone HCl (Narcan) 0.4 mg IVP Q2MIN PRN PRN Reason: SEE COMMENTS Stop: 06/28/18 17:43 Omeprazole (Prilosec) 40 mg PO 0630 [facility] Stop: 06/29/18 06:31 Last Admin: 12/28/17 05:50 Dose: 40 mg Pharmacy Profile Note (Patient Taking Own Medication) 1.5 each SQ QWEEK [facility] Stop: 06/28/18 17:46 Last Admin: 12/27/17 20:27 Dose: Not Given Phenazopyridine HCl (Pyridium) 200 mg PO TID [facility] Stop: 06/28/18 21:01 Last Admin: 12/28/17 08:24 Dose: 200 mg Polyethylene Glycol (Miralax) 17 gm PO DAILY [facility] Stop: 06/29/18 09:01 Last Admin: 12/28/17 08:25 Dose: 17 gm Potassium Chloride (Potassium Chloride) 10 meq PO DAILY [facility] Stop: 06/29/18 09:01 Last Admin: 12/28/17 08:24 Dose: 10 meq Ropinirole HCl (Requip) 1 mg PO HS [facility] Stop: 06/28/18 21:01 Last Admin: 12/27/17 20:32 Dose: 1 mg Rosuvastatin Calcium (Crestor) 10 mg PO QPM [facility] Stop: 06/28/18 18:01 Last Admin: 12/27/17 20:32 Dose: 10 mg Sertraline HCl (Zoloft) 100 mg PO DAILY [facility] Stop: 06/29/18 09:01 Last Admin: 12/28/17 08:24 Dose: 100 mg Tamsulosin HCl (Flomax) 0.4 mg PO DAILY [facility] PRN Reason: Protocol Stop: 06/29/18 09:01 Last Admin: 12/28/17 08:23 Dose: 0.4 mg - EKG Interpretation EKG results cardiology: personally reviewed (SR), other (12 hr tele AVG HR 82, SR, no significant pauses or arrhythmias) Consult Discharge Plan - Plan Referrals: Madeline Michaels MD [Primary Care Provider] - <Tami Terry - Last Filed: 12/28/17 12:56> Date of Encounter: 12/28/17 - Attending Attestation Patient was seen and evaluated independently by me. Findings, assessment and plan were discussed at length with patient, questions answered. Agree with nurse practitioner's documentation. Addition as follows, 67 yoCM ho IPF on home O2, CHF Dx unclear EF, CKD3, HTN, DM, HTN. P/w progressive HOPKINS and edema months. ECG NS TW abn, elevated BNP, neg trop. VSS, bibasilar crackles, RR, no M/G/R, NT, B/L 2+ LE edema to high shins A: ADHF,moderate fluid overload P: - IV diuresis till baseline wt - compression stockings - pending Echo, if LVEF low, ischemia w/u Tami Terry MD, PhD Assessment and Plan Discussion w patient/family: The assessment and plan as outlined above was discussed with the patient and/or family members who expressed understanding and agreement. All questions were answered. Thank you for involving us in the care of your patient. Please call with any questions. History of Present Illness History of present illness: Mr. Crowder is a 67 year old male All Systems Review: The remainder of the systems were reviewed and are negative Physical Examination Vital Signs, Last 4 Hours Temp Pulse Resp BP Pulse Ox 12/28/17 11:12 97.5 F L 78 19 150/82 96 12/28/17 10:39 16 96 Results 12/28/17 03:12 12/28/17 03:12 Lab Results 12/28/17 12/28/17 03:12 03:12 WBC 8.2 Hgb 10.8 L Hct 36.2 L Plt Count 196 Sodium 142 Potassium 4.3 Chloride 96 L Carbon Dioxide 43 H* BUN 32 H Creatinine 1.61 H Glucose 73 Calcium 9.4
[2017-12-28] MEDS: Acetaminophen 325 MG TABLET PO PRN ×2 (14:24→22:40)
[2017-12-28] MEDS: cefTRIAXone 2,000 MG in Water for inj. (sterile) 20 ML 20 ML IVP SCH (18:32)
[2017-12-28] MEDS: rOPINIRole 1 MG TABLET PO SCH (20:39)
[2017-12-28] MEDS: Latanoprost 2.5 ML BOTTLE BOTH EYES SCH (20:40)
[2017-12-29] MEDS: *HR* Heparin 5,000 UNIT/ML VIAL SQ SCH ×2 (05:34→17:44)
[2017-12-29] MEDS: Insulin LISPRO 300 UNITS/3 ML VIAL SQ SCH ×4 (09:33→21:07)
--- NOTE | 2017-12-29 10:35 | Internal Med Progress Note ---
Hospitalist Progress Note - Encounter Date of Encounter: 12/29/17 Time of Encounter: 11:00 - Subjective Interval History: Patient reports improvement in shortness of breath with IV diuresis for CHF Patient to discuss today with cardiology about workup with right heart catheterization to assess for pulmonary hypertension as an outpatient - Exam Vitals: Temp Pulse Resp BP Pulse Ox 97.8 F 84 17 139/89 94 12/29/17 06:59 12/29/17 06:59 12/29/17 06:59 12/29/17 06:59 12/29/17 06:59 Exam: Gen.: Nonacute distress, alert and oriented 3 ENT: Mucosal membranes moist Respiratory: Lungs are clear to auscultation bilaterally without any wheezing rhonchi or rales Cardiovascular: Normal S1 and S2 regular rate rhythm no murmurs rubs or gallops Abdomen: Soft, nontender and nondistended with positive bowel sounds Extremities: Bilateral lower extremity +1 pitting edema up to distal thigh Skin: Normal color - Assessment and Plan (1) Acute exacerbation of CHF (congestive heart failure) Current Visit: Yes Status: Acute Assessment and Plan: Patient reports a new diagnosis of CHF on 08/2017 Patient found to be volume overloaded on exam in addition to elevated BNP of 733 Echocardiogram showed LVEF of 65% with mildly dilated right ventricle and mild right ventricular hypokinesis in addition to severe pulmonary hypertension Will continue IV diuresis Cardiology following with recommendations for a possible right heart catheterization to assess pulmonary hypertension as an outpatient (2) Urinary retention Current Visit: Yes Status: Acute Assessment and Plan: Patient reports a new diagnosis of urinary retention and was supposed to follow- up with urology as an outpatient however his urologist as mood. Machuca catheter was replaced in the ER due to suspected infection Urology consulted with recommendations to maintain Machuca catheter and to follow- up as an outpatient (3) UTI (urinary tract infection) Current Visit: Yes Status: Acute Assessment and Plan: Patient with pyuria on urinalysis and reported pus around catheter site per ER staff. 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 On admission creatinine was 1.70 and creatinine 1.61 on 12/28/17 Will continue to monitor (6) Diabetes Current Visit: Yes Status: Acute Assessment and Plan: Will continue patient's home medications (7) HTN (hypertension) Current Visit: Yes Status: Acute Assessment and Plan: Continue home medications (8) HLD (hyperlipidemia) Current Visit: Yes Status: Acute Assessment and Plan: Continue home medications (9) Anemia Current Visit: Yes Status: Acute Assessment and Plan: Patient with a hemoglobin of 10.9 on admission no reference for baseline Suspect secondary to chronic kidney disease stage III Continue to monitor (10) DVT prophylaxis Current Visit: Yes Status: Acute Assessment and Plan: Heparin subcutaneous - Time Spent with Patient Total time spent is greater than 50% in coordination of care (as documented) at patient's floor/unit and/or counseling patient: Internal Medicine: Result - Labs CBC & Chem 7: 12/29/17 11:15 12/29/17 11:15 - Impressions Impressions Echocardiogram 12/28/17 07:00 Impressions: LVEF 65%. Normal LV chamber size, wall thickness and function. Mildly dilated right ventricle. Mild right ventricular hypokinesis. No significant valvular dysfunction. Consult Discharge Plan - Plan Referrals: Madeline Michaels MD [Primary Care Provider] - (1) Acute exacerbation of CHF (congestive heart failure) Qualifiers: Heart failure type: unspecified Qualified Code(s): I50.9 - Heart failure, unspecified (3) UTI (urinary tract infection) Qualifiers: Urinary tract infection type: site unspecified Hematuria presence: with hematuria Qualified Code(s): N39.0 - Urinary tract infection, site not specified; R31.9 - Hematuria, unspecified (7) HTN (hypertension) Qualifiers: Hypertension type: essential hypertension Qualified Code(s): I10 - Essential (primary) hypertension (8) HLD (hyperlipidemia) Qualifiers: Hyperlipidemia type: unspecified Qualified Code(s): E78.5 - Hyperlipidemia, unspecified
[2017-12-29] MEDS: Gabapentin 300 MG CAPSULE PO SCH ×4 (11:05→21:10)
[2017-12-29] MEDS: Furosemide 40 MG/4 ML VIAL IVP SCH ×2 (11:05→16:19)
[2017-12-29] MEDS: Finasteride 5 MG TABLET PO SCH (11:05)
[2017-12-29] MEDS: Fenofibrate 54 MG TABLET PO SCH (11:06)
[2017-12-29] MEDS: Acetaminophen 325 MG TABLET PO PRN (11:10)
[2017-12-29] MEDS: Dorzolamide OPTH 10 ML BOTTLE BOTH EYES SCH ×2 (11:40→12:07)
[2017-12-29 11:45] LABS: Lymphocytes % 17.4 %
[2017-12-29 11:47] LABS: Basophils # 0.1 K/mcL (0.0-0.2); Basophils % 0.7 %; Eosinophils # 0.3 K/mcL (0.0-0.6); Eosinophils % 3.6 %; Hematocrit 36.6 % (37.5-50.1); Hemoglobin 10.4 g/dL (12.9-16.9); Immature Granulocytes % 0.3 % (0-4); Lymphocytes # 1.2 K/mcL (0.6-4.6); Mean Corpuscular HGB Conc 28.4 g/dL (31.6-35.5); Mean Corpuscular Hemoglobin 26.1 pg (28.0-33.3); Mean Corpuscular Volume 91.7 fL (83.0-100.0); Mean Platelet Volume 11.1 fL (9.4-12.4); Monocytes % 10.8 %; Neutrophils # 4.6 K/mcL (1.6-8.9); Platelet Count 178 K/mcL (140-400); Red Blood Count 3.99 M/mcL (4.19-5.50); Red Cell Distribution Width 14.6 % (11.5-14.5); Segmented Neutrophils % 67.2 %
[2017-12-29 11:54] LABS: Monocytes # 0.8 K/mcL (0.0-1.3)
[2017-12-29 12:07] LABS: BUN/Creatinine Ratio 19 (6-26); Blood Urea Nitrogen 26 mg/dL (8-23); Calcium 9.7 mg/dL (8.6-10.3); Carbon Dioxide 43 mEq/L (23-29); Chloride 94 mEq/L (98-107); Glucose 141 mg/dL (70-105); Osmolality,Calculated 297 (280-300); Potassium 5.3 mEq/L (3.5-5.1); Sodium 140 mEq/L (136-145); eGFR For Non-African Americans 52 (> 60)
[2017-12-29] MEDS ORDERED: Dulaglutide [Trulicity] 1.5 MG SQ SCH (12:15)
--- NOTE | 2017-12-29 12:50 | Cardiology Progress Note ---
Date of Encounter: 12/29/17 Time of Encounter: 12:47 Assessment and Plan (1) Acute exacerbation of CHF (congestive heart failure) Current Visit: Yes Status: Acute Per pt, diagnosed with CHF at [facility] 08/2017. Presented with worsening dyspnea and LE edema over recent weeks. Reports excessive fluid intake--was unaware he should be restricting. BNP 733. Agree with IV diuresis, IV Lasix 40mg BID. Monitor renal function closely given CKD. Symptoms improved, still not at baseline. Recommend minimum of another 24 hours of IV diuresis. Transition to PO maintenance dosing prior to d/c. Recommend strict I/Os, Na and fluid restriction, daily weights. TTE LVEF 65%. Mildly dilated RV. Mild RV hypokinesis. Severe phtn, est RVSP 70mmHg. Per Dr. Terry's note addendum yesterday, will need RHC for PH grouping and possible non-group 2 PH workup. This is typically done as outpt. 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 Follow-up with pulm as planned. Would like to establish with [facility]. Will coordinate. No further inpt cardiac testing is warranted at this time. Cardiology signing off. Will coordinate outpt follow-up in 2-3 weeks. Qualifiers: Heart failure type: unspecified Qualified Code(s): I50.9 - Heart failure, unspecified (2) Moderate to severe pulmonary hypertension Current Visit: Yes Status: Acute Severe phtn on TTE, est RVSP 70mmHg. Per Dr. Terry's note addendum yesterday, will need RHC for PH grouping and possible non-group 2 PH workup. This is typically done as outpt. 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 Follow-up with pulm as planned. Will coordinate outpt cardiol f /up as well. Discussion w patient/family: The assessment and plan as outlined above was discussed with the patient and/or family members who expressed understanding and agreement. All questions were answered. Thank you for involving us in the care of your patient. Please call with any questions. I will discuss all the above with Dr. Shi and make changes as necessary. Subjective Principal diagnosis: CHF Interval history: TTE resulted--EF preserved, severe phtn and mildly dilated RV/mild RV hypokinesis. Reports dyspnea and LE edema have improved, but still not back to baseline. Objective Vital Signs, Last 4 Hours Temp Pulse Resp BP Pulse Ox 12/29/17 10:55 16 94 12/29/17 10:54 98.5 F 93 15 147/79 95 Vital Signs Temp Pulse Resp BP Pulse Ox 12/29/17 10:55 16 94 12/29/17 10:54 98.5 F 93 15 147/79 95 12/29/17 06:59 97.8 F 84 17 139/89 94 12/29/17 05:00 16 92 12/29/17 03:39 97.8 F 89 16 128/85 93 12/28/17 23:00 97.7 F 86 17 117/77 93 12/28/17 22:56 14 95 12/28/17 19:06 97.7 F 88 16 130/77 96 12/28/17 15:09 97.5 F L 86 20 101/64 93 Intake and Output 12/28/17 12/29/17 12/29/17 23:59 07:59 15:59 Intake Total 790 / 790 Output Total 2049 / 0 1000 / 1000 550 / 550 Balance -1260 / -1260 -1000 / -1000 -550 / -550 Intake: Oral 240 / 240 Free Water 550 / 550 Output: Urine 500 / 500 Catheter 1550 / 1550 1000 / 1000 550 / 550 Other: Meal Dinner Percent of Meal Consumed 100% Weight 124 kg Blood Glucose* 189 173 152 Patient Weight 12/29/17 23:59 Weight 124 kg General: Conversant, No Apparent Distress HEENT: Atraumatic, Normocephaly, Mucus Membranes Moist Neck: No JVD, Normal carotid pulses Cardiac: Reg Rate and Rhythm, Normal S1 and S2, No Murmur Lungs: Other (diminished) Neuro: Alert and responsive, No focal deficits noted Abdomen: Soft, Non-Tender Skin: No rashes noted on visualized skin Musculoskeletal: No Chest Wall Tenderness Extremities: Other (1+ BLE edema) Results 12/29/17 11:15 12/29/17 11:15 Lab Results 12/29/17 12/29/17 11:15 11:15 WBC 6.9 Hgb 10.4 L Hct 36.6 L Plt Count 178 Sodium 140 Potassium 5.3 H Chloride 94 L Carbon Dioxide 43 H* BUN 26 H Creatinine 1.37 H Glucose 141 H Calcium 9.7 Short CBC 12/29/17 Range/Units 11:15 WBC 6.9 (4.3-11.1) K/mcL Hgb 10.4 L (12.9-16.9) g/dL Hct 36.6 L (37.5-50.1) % Plt Count 178 (140-400) K/mcL Neutrophils # 4.6 (1.6-8.9) K/mcL BMP 12/29/17 Range/Units 11:15 Sodium 140 (136-145) mEq/L Potassium 5.3 H (3.5-5.1) mEq/L Chloride 94 L (98-107) mEq/L Carbon Dioxide 43 H* (23-29) mEq/L BUN 26 H (8-23) mg/dL Creatinine 1.37 H (0.70-1.30) mg/dL Glucose 141 H (70-105) mg/dL Calcium 9.7 (8.6-10.3) mg/dL Impressions Echocardiogram 12/28/17 07:00 Impressions: LVEF 65%. Normal LV chamber size, wall thickness and function. Mildly dilated right ventricle. Mild right ventricular hypokinesis. No significant valvular dysfunction. Active Medications Acetaminophen (Tylenol) 650 mg PO Q6HR PRN PRN Reason: Pain Stop: 06/29/18 12:00 Last Admin: 12/29/17 11:10 Dose: 650 mg Albuterol Sulfate (Albuterol Inhaler) 2 puff IH QIDR [facility] Stop: 06/28/18 23:01 Last Admin: 12/29/17 10:54 Dose: 2 puff Dextrose/Water (Dextrose 50% (Syg)) 25 ml IVP AD PRN PRN Reason: Hypoglycemia Stop: 06/28/18 18:09 Docusate Sodium (Colace) 100 mg PO HS [facility] PRN Reason: Protocol Stop: 06/28/18 21:01 Last Admin: 12/28/17 20:39 Dose: 100 mg Dorzolamide HCl (Trusopt) 1 drop BOTH EYES 0900,1200 [facility] Stop: 06/28/18 21:01 Last Admin: 12/29/17 12:07 Dose: Not Given Fenofibrate (Tricor) 162 mg PO DAILY [facility] Stop: 06/29/18 09:01 Last Admin: 12/29/17 11:06 Dose: 162 mg Finasteride (Proscar) 5 mg PO DAILY [facility] PRN Reason: Protocol Stop: 06/29/18 09:01 Last Admin: 12/29/17 11:05 Dose: 5 mg Furosemide (Lasix) 40 mg IVP BIDDIURETIC [facility] Stop: 06/28/18 18:01 Last Admin: 12/29/17 11:05 Dose: 40 mg Gabapentin (Neurontin) 300 mg PO 0800,1200 [facility] Stop: 06/29/18 08:01 Last Admin: 12/29/17 11:05 Dose: 300 mg Gabapentin (Neurontin) 600 mg PO HS [facility] Stop: 06/28/18 21:01 Last Admin: 12/28/17 20:39 Dose: 600 mg Glucagon (Glucagen) 1 mg IM ONCE PRN PRN Reason: Hypoglycemia Stop: 06/28/18 18:09 Glucose (Gluctose) 15 gm PO ONCE PRN PRN Reason: Hypoglycemia Stop: 06/28/18 18:09 Glucose (Gluctose) 30 gm PO ONCE PRN PRN Reason: Hypoglycemia Stop: 06/28/18 18:09 Heparin Sodium (Porcine) (Heparin) 5,000 unit SQ Q12HCO [facility] Stop: 06/28/18 18:01 Last Admin: 12/29/17 05:34 Dose: 5,000 unit Ceftriaxone Sodium 2,000 mg/ (Sterile Water) 20 mls @ 600 mls/hr IVP Q24H [facility] Stop: 06/28/18 18:01 Last Admin: 12/28/17 18:32 Dose: 20 mls/hr Dextrose (Dextrose 5%) 1,000 mls @ 100 mls/hr IVC .Q10H PRN PRN Reason: HYPOGLYCEMIA Stop: 06/28/18 18:09 Insulin Detemir (Levemir) 40 unit SQ QAM [facility] Stop: 06/29/18 09:01 Last Admin: 12/28/17 11:50 Dose: Not Given Insulin Detemir (Levemir) 80 unit SQ QPM [facility] Stop: 06/28/18 18:01 Last Admin: 12/27/17 21:06 Dose: 80 unit Insulin Human Lispro (Humalog) 0 units SQ TIDAC [facility] PRN Reason: Protocol Stop: 06/29/18 07:31 Last Admin: 12/29/17 11:38 Dose: Not Given Insulin Human Lispro (Humalog) 0 units SQ HS [facility] PRN Reason: Protocol Stop: 06/29/18 21:01 Last Admin: 12/28/17 20:25 Dose: Not Given Latanoprost (Xalatan) 1 drop BOTH EYES HS [facility] Stop: 06/28/18 21:01 Last Admin: 12/28/17 20:40 Dose: 1 drop Losartan Potassium (Cozaar) 25 mg PO DAILY [facility] PRN Reason: Protocol Stop: 06/29/18 09:01 Last Admin: 12/29/17 11:05 Dose: 25 mg Naloxone HCl (Narcan) 0.4 mg IVP Q2MIN PRN PRN Reason: SEE COMMENTS Stop: 06/28/18 17:43 Omeprazole (Prilosec) 40 mg PO 0630 [facility] Stop: 06/29/18 06:31 Last Admin: 12/29/17 05:34 Dose: 40 mg Pharmacy Profile Note (Patient Taking Own Medication) 1.5 each SQ QWEEK [facility] Stop: 06/30/18 12:16 Last Admin: 12/29/17 12:11 Dose: 1.5 each Phenazopyridine HCl (Pyridium) 200 mg PO TID [facility] Stop: 06/28/18 21:01 Last Admin: 12/29/17 11:05 Dose: 200 mg Polyethylene Glycol (Miralax) 17 gm PO DAILY [facility] Stop: 06/29/18 09:01 Last Admin: 12/29/17 11:06 Dose: Not Given Potassium Chloride (Potassium Chloride) 10 meq PO DAILY [facility] Stop: 06/29/18 09:01 Last Admin: 12/29/17 11:05 Dose: 10 meq Ropinirole HCl (Requip) 1 mg PO HS [facility] Stop: 06/28/18 21:01 Last Admin: 12/28/17 20:39 Dose: 1 mg Rosuvastatin Calcium (Crestor) 10 mg PO QPM [facility] Stop: 06/28/18 18:01 Last Admin: 12/28/17 18:30 Dose: 10 mg Sertraline HCl (Zoloft) 100 mg PO DAILY [facility] Stop: 06/29/18 09:01 Last Admin: 12/29/17 11:05 Dose: 100 mg Tamsulosin HCl (Flomax) 0.4 mg PO DAILY [facility] PRN Reason: Protocol Stop: 06/29/18 09:01 Last Admin: 12/29/17 11:06 Dose: 0.4 mg - Imaging and Cardiology Echo: report reviewed - EKG Interpretation EKG results cardiology: other (12 hr tele AVG HR 86, SR, no significant pauses or arrhythmias noted.) Consult Discharge Plan - Plan Referrals: Madeline Michaels MD [Primary Care Provider] -
[2017-12-29 14:16] LABS: Platelet Estimate Slight Decrease (Normal); Stomatocytes 1+ (Not Present)
--- NOTE | 2017-12-29 15:27 | Electrocardiograph Report ---
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
[2017-12-29] MEDS: Aspirin 81 MG TAB.CHEW PO SCH (16:19)
[2017-12-29] MEDS: cefTRIAXone 2,000 MG in Water for inj. (sterile) 20 ML 20 ML IVP SCH (17:45)
[2017-12-29] MEDS: rOPINIRole 1 MG TABLET PO SCH (21:09)
[2017-12-29] MEDS: Latanoprost 2.5 ML BOTTLE BOTH EYES SCH (21:10)
[2017-12-30] MEDS: Acetaminophen 325 MG TABLET PO PRN ×2 (02:01→16:32)
[2017-12-30] MEDS: traMADol 50 MG TABLET PO PRN ×2 (04:43→11:53)
[2017-12-30] MEDS: *HR* Heparin 5,000 UNIT/ML VIAL SQ SCH (05:56)
[2017-12-30] MEDS: Fenofibrate 54 MG TABLET PO SCH (08:40)
[2017-12-30] MEDS: Finasteride 5 MG TABLET PO SCH (08:40)
[2017-12-30] MEDS: Aspirin 81 MG TAB.CHEW PO SCH (08:40)
[2017-12-30] MEDS: Furosemide 40 MG/4 ML VIAL IVP SCH (08:41)
[2017-12-30] MEDS: Gabapentin 300 MG CAPSULE PO SCH (08:41)
[2017-12-30] MEDS: Insulin LISPRO 300 UNITS/3 ML VIAL SQ SCH ×2 (08:41→11:53)
[2017-12-30] MEDS: Dorzolamide OPTH 10 ML BOTTLE BOTH EYES SCH ×2 (08:42→11:53)
--- NOTE | 2017-12-30 08:52 | Urology Progress Note ---
<Seda Layton N - Last Filed: 12/30/17 08:49> Date of Encounter: 12/30/17 Time of Encounter: 08:49 - Assessment and Plan (1) Urinary retention Status: Acute Assessment and plan: Patient is a 67-year-old male who presents with acute urinary retention. Patient is aware he will be discharged with his catheter. Catheter care instructions to be provided by nursing staff. Patient agrees to follow-up as an outpatient for a voiding trial. Patient will continue Flomax and finasteride. Progress Note Subjective: no new complaints, feels better, afebrile Narrative: Patient seen and examined sitting upright in bed eating breakfast in no apparent distress. Patient denies catheter discomfort or feeling of obstruction. Patient states he is feeling well and denies bladder spasms, suprapubic pain, or gross hematuria. Objective Initial Vital Signs Temp Pulse Resp BP Pulse Ox 97.7 F 90 18 143/79 96 12/27/17 14:12 12/27/17 14:12 12/27/17 14:12 12/27/17 14:12 12/27/17 14:12 - General physical appearance Present: well developed, no distress, no pain - Respiratory Present: normal expansion, normal respiratory effort - Abdomen Present: soft, non tender - Genitourinary Urine Appearance: Present: Clear (orange tinge urine secondary to AZO use) - Integumentary Present: no rash, no abnormal pigmentation - Musculoskeletal Present: normal posture - Psychiatric Present: oriented to time, oriented to person, oriented to place, speech is normal, memory intact - Labs 12/29/17 11:15 12/29/17 11:15 Diabetes panel 12/29/17 Range/Units 11:15 Sodium 140 (136-145) mEq/L Potassium 5.3 H (3.5-5.1) mEq/L Chloride 94 L (98-107) mEq/L Carbon Dioxide 43 H* (23-29) mEq/L BUN 26 H (8-23) mg/dL Creatinine 1.37 H (0.70-1.30) mg/dL Glucose 141 H (70-105) mg/dL Calcium 9.7 (8.6-10.3) mg/dL Calcium panel 12/29/17 Range/Units 11:15 Calcium 9.7 (8.6-10.3) mg/dL Pituitary panel 12/29/17 Range/Units 11:15 Sodium 140 (136-145) mEq/L Potassium 5.3 H (3.5-5.1) mEq/L Chloride 94 L (98-107) mEq/L Carbon Dioxide 43 H* (23-29) mEq/L BUN 26 H (8-23) mg/dL Creatinine 1.37 H (0.70-1.30) mg/dL Glucose 141 H (70-105) mg/dL Calcium 9.7 (8.6-10.3) mg/dL Adrenal panel 12/29/17 Range/Units 11:15 Sodium 140 (136-145) mEq/L Potassium 5.3 H (3.5-5.1) mEq/L Chloride 94 L (98-107) mEq/L Carbon Dioxide 43 H* (23-29) mEq/L BUN 26 H (8-23) mg/dL Creatinine 1.37 H (0.70-1.30) mg/dL Glucose 141 H (70-105) mg/dL Calcium 9.7 (8.6-10.3) mg/dL - Imaging CT scan - abdomen: report reviewed, image reviewed CT scan - pelvis: report reviewed, image reviewed Consult Discharge Plan - Plan Instructions: Heart Failure (DC), Urinary Tract Infection in Men (DC), Machuca Catheter Placement and Care (DC), Diabetes Mellitus Type 2 in Adults (DC), Fluid Restriction (DC), Anemia (GEN), Heart Failure, Crew Chief (GEN) Additional Instructions: Follow-up appointments: If there is not an appointment listed below, please call your physician and schedule a follow-up appointment. If you have congestive heart failure and your symptoms return, make an appointment with your physician. Medication List: Carry an up to date list of medications you are taking at all time. We have given you an updated medication list including any new medications that you have been prescribed. Please provide that list to your primary provider Symptoms: If your condition changes or you experience any of the following symptoms, notify your physician immediately: Unusual or worsening pain, fever, persistent nausea and vomiting, bleeding, increase in swelling (especially in your legs), sudden weight gain, extreme dizziness, chest pain, increased drainage or redness from a wound or incision. Go to the emergency department if you experience a problem with breathing. Weights: If you have a history of swelling or shortness of breath, weigh yourself daily and notify your physician if you have a weight gain of two or more pounds in one day or 5 or more pounds in a week. If you experience any of the warning signs for stroke: Sudden numbness or weakness of the face, arm or leg; especially on one side of the body, sudden confusion, trouble speaking or understanding, sudden trouble seeing in one or both eyes, sudden trouble walking, dizziness, loss of balance or coordination, sudden sever headache with no cause; Call 911 or go to the emergency room. Stroke is a medical emergency. Some risk factors for stroke: Age, cigarette smoking, diabetes, excessive alcohol consumption, family history , high blood pressure, overweight, physical inactivity, prior stroke, heart attack, diagnosis of carotid artery stenosis or other artery disease. If you smoke, STOP: Smoking or tobacco use significantly increases your risk of heart and lung disease. Your chance of disease greatly increases if you continue to smoke. For more information, call the [employer] tobacco quit line for smoking cessation 2-708- QUIT-NOW ( ) Referrals: [facility] [Provider Group] Madeline Michaels MD [Primary Care Provider] - 01/06/18 1:20 pm (Please call to make a follow up appointment for 1-2 weeks from discharge. ) Ranjeet Castillo MD [Partnered Physician] - 01/05/18 9:30 am (This appointment was web requested. Please call the office if you do not hear anything by tomorrow. ) <Ranjeet Castillo - Last Filed: 12/31/17 06:50> Date of Encounter: 12/31/17 - Assessment and Plan (1) Urinary retention Status: Acute Assessment and plan: pt seen in conjunction with PA. agree with plan to continue cath. no change in plan of care Objective Initial Vital Signs Temp Pulse Resp BP Pulse Ox 97.7 F 90 18 143/79 96 12/27/17 14:12 12/27/17 14:12 12/27/17 14:12 12/27/17 14:12 12/27/17 14:12 - Labs 12/29/17 11:15 12/30/17 13:55 Diabetes panel 12/30/17 Range/Units 13:55 Sodium 139 (136-145) mEq/L Potassium 4.3 (3.5-5.1) mEq/L Chloride 95 L (98-107) mEq/L Carbon Dioxide 42 H* (23-29) mEq/L BUN 24 H (8-23) mg/dL Creatinine 1.42 H (0.70-1.30) mg/dL Glucose 129 H (70-105) mg/dL Calcium 9.7 (8.6-10.3) mg/dL Calcium panel 12/30/17 Range/Units 13:55 Calcium 9.7 (8.6-10.3) mg/dL Pituitary panel 12/30/17 Range/Units 13:55 Sodium 139 (136-145) mEq/L Potassium 4.3 (3.5-5.1) mEq/L Chloride 95 L (98-107) mEq/L Carbon Dioxide 42 H* (23-29) mEq/L BUN 24 H (8-23) mg/dL Creatinine 1.42 H (0.70-1.30) mg/dL Glucose 129 H (70-105) mg/dL Calcium 9.7 (8.6-10.3) mg/dL Adrenal panel 12/30/17 Range/Units 13:55 Sodium 139 (136-145) mEq/L Potassium 4.3 (3.5-5.1) mEq/L Chloride 95 L (98-107) mEq/L Carbon Dioxide 42 H* (23-29) mEq/L BUN 24 H (8-23) mg/dL Creatinine 1.42 H (0.70-1.30) mg/dL Glucose 129 H (70-105) mg/dL Calcium 9.7 (8.6-10.3) mg/dL
[2017-12-30 11:16] VITALS: BP 144/75
[2017-12-30 14:54] LABS: BUN/Creatinine Ratio 17 (6-26); Blood Urea Nitrogen 24 mg/dL (8-23); Calcium 9.7 mg/dL (8.6-10.3); Carbon Dioxide 42 mEq/L (23-29); Chloride 95 mEq/L (98-107); Glucose 129 mg/dL (70-105); Osmolality,Calculated 294 (280-300); Potassium 4.3 mEq/L (3.5-5.1); Sodium 139 mEq/L (136-145); eGFR For Non-African Americans 50 (> 60)
--- NOTE | 2017-12-30 15:58 | Discharge Summary ---
- NOTES TO OUTPATIENT PROVIDER Notes to Outpatient Provider: Patient presents with dyspnea and new onset CHF as well as urinary retention. History of pulmonary fibrosis and is O2 dependent. Upon arrival found to have BNP of 733 as well as bilateral lower extremity edema and pulmonary vascular congestion. Was subsequently treated with diuretics and respiratory status improved and back to baseline on day of discharge. Additionally, during admission found to have urinary retention. Machuca catheter placed throughout stay, urology seeing in consultation. Patient will be discharged with Machuca catheter which is to be removed during follow-up with urology. Additionally, found to have UTI and subsequently treated with 3 day course of Rocephin. This will also be addressed with follow-up with urology. Please ensure urology follow-up and cardiology follow-up. Patient has been instructed to have follow-up with PCP within 1 week of discharge. Patient now back to baseline over liters nasal cannula remains hemodynamically stable and ready for discharge. Date of Encounter: 12/30/17 Time of Encounter: 15:56 - Discharge Diagnosis (1) Acute exacerbation of CHF (congestive heart failure) Priority: Primary Status: Acute Qualifiers: Heart failure type: unspecified Qualified Code(s): I50.9 - Heart failure, unspecified (2) UTI (urinary tract infection) Priority: Secondary Status: Acute Qualifiers: Urinary tract infection type: site unspecified Hematuria presence: with hematuria Qualified Code(s): N39.0 - Urinary tract infection, site not specified; R31.9 - Hematuria, unspecified (3) Urinary retention Priority: Secondary Status: Acute (4) Diabetes Priority: Secondary Status: Acute Qualifiers: Qualified Code(s): E11.9 - Type 2 diabetes mellitus without complications (5) HTN (hypertension) Priority: Secondary Status: Chronic Qualifiers: Hypertension type: essential hypertension Qualified Code(s): I10 - Essential (primary) hypertension (6) HLD (hyperlipidemia) Priority: Secondary Status: Chronic Qualifiers: Hyperlipidemia type: unspecified Qualified Code(s): E78.5 - Hyperlipidemia , unspecified (7) CKD (chronic kidney disease) stage 3, GFR 30-59 ml/min Priority: Secondary Status: Chronic (8) Chronic respiratory failure with hypoxia Priority: Secondary Status: Chronic (9) Anemia Priority: Secondary Status: Chronic Qualifiers: Qualified Code(s): D64.9 - Anemia, unspecified (10) DVT prophylaxis Priority: Secondary Status: Acute Hospital course: Mr. Crowder is a 67 year old male Patient presents with dyspnea and new onset CHF as well as urinary retention. History of pulmonary fibrosis and is O2 dependent. Upon arrival found to have BNP of 733 as well as bilateral lower extremity edema and pulmonary vascular congestion. Was subsequently treated with diuretics and respiratory status improved and back to baseline on day of discharge. Additionally, during admission found to have urinary retention. Machuca catheter placed throughout stay, urology seeing in consultation. Patient will be discharged with Machuca catheter which is to be removed during follow-up with urology. Additionally, found to have UTI and subsequently treated with 3 day course of Rocephin. This will also be addressed with follow-up with urology. Please ensure urology follow-up and cardiology follow-up. Patient has been instructed to have follow- up with PCP within 1 week of discharge. Patient now back to baseline over liters nasal cannula remains hemodynamically stable and ready for discharge. Discharge discussed with: patient, nurse - Time Spent with Patient Total time spent providing and/or coordinating discharge services: Less than 30 minutes - Discharge Medications Home Medications: Albuterol Sulfate [Proair Hfa] 2 puff IH QID PRN 12/27/17 [History] Docusate Sodium [Dok] 100 mg PO HS 12/27/17 [History] Dorzolamide HCl/Pf [Dorzolamide 2% Eye Drop] 1 drop OP BID 12/27/17 [History] Dulaglutide [Trulicity] 1.5 mg SQ QWEEK 12/27/17 [History] Esomeprazole Magnesium [Nexium] 40 mg PO DAILY 12/27/17 [History] Fenofibrate Nanocrystallized [Fenofibrate] 145 mg PO DAILY 12/27/17 [History] Finasteride [Proscar] 5 mg PO DAILY 12/27/17 [History] Furosemide [Lasix] 40 mg PO BID 12/27/17 [History] Gabapentin [Neurontin] 300 mg PO 0800,1200 12/27/17 [History] Gabapentin [Neurontin] 600 mg PO HS 12/27/17 [History] Insulin DETEMIR [Levemir Flextouch] 40 unit SQ QAM 12/27/17 [History] Insulin DETEMIR [Levemir Flextouch] 80 unit SQ QPM 12/27/17 [History] Losartan [Cozaar] 25 mg PO DAILY 12/27/17 [History] Phenazopyridine [Pyridium] 200 mg PO TID 12/27/17 [History] Polyethylene Glycol 3350 [MiraLAX Powder Bulk 17.9 Oz] 1 scoop PO DAILY [History] Potassium Chloride [Klor-Con 10] 10 meq PO DAILY 12/27/17 [History] Rosuvastatin Calcium [Crestor] 10 mg PO QPM 12/27/17 [History] Sertraline [Zoloft] 100 mg PO DAILY 12/27/17 [History] Tamsulosin HCl [Flomax] 0.4 mg PO DAILY 12/27/17 [History] Tizanidine HCl 2 - 4 mg PO TID PRN 12/27/17 [History] Travoprost [Travatan Z] 1 drop OP HS 12/27/17 [History] metFORMIN [Glucophage] 850 mg PO BID 12/27/17 [History] rOPINIRole [Requip] 1 mg PO HS 12/27/17 [History] Aspirin 81 mg PO DAILY tab.chew 12/30/17 [Rx] Allergies/Adverse Reactions: 3 Allergy/AdvReac Type Severity Reaction Status Date / Time nitrofurantoin Allergy See Verified 12/27/17 14:14 [From Macrobid] Comments Penicillins Allergy Anaphylaxis Verified 12/27/17 14:14 Date of admission: 12/27/17 16:21 Primary care physician: Madeline Michaels MD Consults: 12/27/17 17:43 Consult to Cardiology [CONS] Routine Comment: Consulting Provider: Cardiology Henny Reason for Consult: New onset CHF Call Completed: No 12/27/17 17:44 Consult to Urology [CONS] Routine Consulting Provider: Urology Henny Reason for Consult: Urinary retention Call Completed: No 12/29/17 09:59 Consult to Nurse Navigator [CONS] Routine Comment: CHF Discharging clinician: Jens Olvera Anticipated date of discharge: 12/30/17 - Constitutional Vitals: Temp Pulse Resp BP Pulse Ox 97.9 F 84 16 144/75 95 12/30/17 11:16 12/30/17 11:16 12/30/17 11:35 12/30/17 11:16 12/30/17 11:35 General appearance: Present: A&O X 3, no acute distress Exam: Gen.: Nonacute distress, alert and oriented 3 ENT: Mucosal membranes moist Respiratory: Lungs are clear/diminished to auscultation bilaterally without any wheezing rhonchi or rales Cardiovascular: Normal S1 and S2 regular rate rhythm no murmurs rubs or gallops Abdomen: Soft, nontender and nondistended with positive bowel sounds Extremities: Bilateral lower extremity without pitting edema Skin: Normal color - Patient Status Disposition: Home, Self-Care Condition: Fair Overall status at discharge: patient is back to baseline - Discharge Instructions Instructions: Machuca Catheter Placement and Care (DC), Fluid Restriction (DC), Heart Failure, French Binding Folder (GEN), Diabetes Mellitus Type 2 in Adults (DC), Heart Failure (DC), Urinary Tract Infection in Men (DC), Anemia (GEN) Follow Up With: Madeline Michaels MD [Primary Care Provider] - Additional Instructions: Follow-up appointments: If there is not an appointment listed below, please call your physician and schedule a follow-up appointment. If you have congestive heart failure and your symptoms return, make an appointment with your physician. Medication List: Carry an up to date list of medications you are taking at all time. We have given you an updated medication list including any new medications that you have been prescribed. Please provide that list to your primary provider Symptoms: If your condition changes or you experience any of the following symptoms, notify your physician immediately: Unusual or worsening pain, fever, persistent nausea and vomiting, bleeding, increase in swelling (especially in your legs), sudden weight gain, extreme dizziness, chest pain, increased drainage or redness from a wound or incision. Go to the emergency department if you experience a problem with breathing. Weights: If you have a history of swelling or shortness of breath, weigh yourself daily and notify your physician if you have a weight gain of two or more pounds in one day or 5 or more pounds in a week. If you experience any of the warning signs for stroke: Sudden numbness or weakness of the face, arm or leg; especially on one side of the body, sudden confusion, trouble speaking or understanding, sudden trouble seeing in one or both eyes, sudden trouble walking, dizziness, loss of balance or coordination, sudden sever headache with no cause; Call 911 or go to the emergency room. Stroke is a medical emergency. Some risk factors for stroke: Age, cigarette smoking, diabetes, excessive alcohol consumption, family history , high blood pressure, overweight, physical inactivity, prior stroke, heart attack, diagnosis of carotid artery stenosis or other artery disease. If you smoke, STOP: Smoking or tobacco use significantly increases your risk of heart and lung disease. Your chance of disease greatly increases if you continue to smoke. For more information, call the [place] tobacco quit line for smoking cessation 9-817 QUIT-NOW ( ) - Diet and Activity Activity: increase activity as tolerated, resume usual activities as tolerated Diet: diabetic diet, low fat, low cholesterol, low salt diet
[2017-12-30] MEDS: cefTRIAXone 2,000 MG in Water for inj. (sterile) 20 ML 20 ML IVP SCH (16:32)
== END 2017-12-30 16:58 | disposition home or self-care (01) ==
LOC: EMEROOARM 14:06 → 3BNU 14:06 → SUATTDRO 16:21 → 3BNU 18:25
PROVIDERS: ADMIT Internal Medicine; ATTEND Hospitalist